=== PATIENT | female | born 1965 | race Caucasian/White ===

== ENCOUNTER → 2016-05-23 | Outpatient (CLI) | payer OTHER | END | disposition home or self-care (01) | LOC: RAD.S 07:30 | DX: N20.0 Calculus of kidney (principal) ==

== ENCOUNTER → 2016-07-04 | Outpatient (CLI) | payer OTHER | END | disposition home or self-care (01) | DX: N20.0 Calculus of kidney (principal); Z98.890 Other specified postprocedural states ==